=== PATIENT | female | born 1975 | race Caucasian/White ===

== ENCOUNTER 2019-06-10 08:26 | Emergency (ER) | payer MEDICAID ==
[~2019-06-10] VITALS: Ht 165.1 cm; Wt 136.1 kg
[2019-06-10 08:40] VITALS: BP_SYST 149
--- NOTE | 2019-06-10 08:40 | NUR ---
Patient to ER bed 8 to gown for evaluation. Side rails up.
--- NOTE | 2019-06-10 08:41 | NUR ---
Note mally in EDM - 06/10/19 at 1050 by SDEDTD Patient presented to ER with back pain. Patient A&Ox4, skin pink and war, ambulatory to ER, pain 05/05, denies N/V/D. Patient states back pain in
--- NOTE | 2019-06-10 08:41 | NUR ---
Patient presented to ER with back pain. Patient A&Ox4, skin pink and war, ambulatory to ER, pain 05/05, denies N/V/D. Patient states she has left ankle pain and swellin x9 years, not pain radiating to left leg and coccyx. Patient states she had previous left bunionectomy, GERD & lung blood clots. Patient states she takes PRN gabapentin, aleive & Zantac
--- NOTE | 2019-06-10 08:50 | NUR ---
ER Dr. Srinivasan at bedside examining patient.
[2019-06-10] MEDS ORDERED: KETOROLAC TROMETHAMINE 60 MG/2 ML VIAL IM ONE (09:00)
[2019-06-10 09:14] LABS: BASOPHILS % (AUTO) 1.4 % (0.0-2.0); EOSINOPHILS # (AUTO) 0.1 K/uL (0.0-0.4); EOSINOPHILS % (AUTO) 4.8 % (0.0-4.0); HEMATOCRIT 41.5 % (36-48); HEMOGLOBIN 14.1 g/dL (12.0-16.0); LYMPHOCYTES # (AUTO) 1.3 K/uL (1.0-5.5); LYMPHOCYTES % (AUTO) 43.1 % (20.5-51.5); MEAN CORPUSCULAR HEMOGLOBIN 32 pg (27-31); MEAN CORPUSCULAR HGB CONC 34 % (32-36); MEAN CORPUSCULAR VOLUME 95 fL (79.0-98.0); MONOCYTES # (AUTO) 0.3 K/uL (0.0-1.0); MONOCYTES % (AUTO) 8.6 % (1.7-9.3); NEUTROPHILS # (AUTO) 1.3 K/uL (1.8-7.7); NEUTROPHILS % (AUTO) 42.1 % (40.0-70.0); PLATELET COUNT (AUTO) 265 K/uL (130-430); RED BLOOD CELL COUNT(AUTO) 4.37 MIL/uL (4.2-6.2); RED CELL DISTRIBUTION WIDTH 12.7 % (9.0-15.0); WHITE BLOOD COUNT (AUTO) 3.1 K/uL (4.8-10.8)
[2019-06-10 09:33] LABS: PROTHROMBIN TIME 9.9 SECS (9.5-12.5)
[2019-06-10 09:54] LABS: ALANINE AMINOTRANSFERASE 18 U/L (12-78); ANION GAP 5 (5-15); ASPARTATE AMINOTRANSFERASE 16 U/L (10-37); CALCIUM 8.5 mg/dL (8.4-11.0); CHLORIDE 104 mmol/L (98-107); CREATININE 0.87 mg/dL (0.55-1.30); GFR AFRICAN AMERICAN 91 mL/min (>90); GLUCOSE 94 mg/dL (70-99); POTASSIUM 3.9 mmol/L (3.5-5.1); SODIUM SERUM 136 mmol/L (136-145); TOTAL BILIRUBIN 0.5 mg/dL (0.0-1.0); UREA NITROGEN, BLOOD 12 mg/dL (8-21)
[2019-06-10 09:55] LABS: ALBUMIN 3.6 g/dL (3.4-4.8); URIC ACID 3.7 mg/dL (2.4-7.0)
[2019-06-10 10:01] LABS: ERYTHROCYTE SEDIMENTATION RATE 8 MM/HR (0-20)
[2019-06-10 10:43] LABS: C-REACTIVE PROTEIN QUANT < 0.2 mg/dL (0-0.5)
[2019-06-10 10:55] VITALS: BP_SYST 149
--- NOTE | 2019-06-10 10:55 | NUR ---
Patient given written and verbal discharge instructions and verbalizes understanding. ER MD discussed with patient the results and treatment provided. Patient in stable condition. ID arm band removed. Rx of Lamont & Motrin given. Patient educated on pain management and to follow up with PMD. Pain Scale 8/10 tolerable for patient. Opportunity for questions provided and answered.
== END 2019-06-10 10:55 | disposition home or self-care (01) ==
LOC: SED 08:26
DX: M54.5 Low back pain (principal); M25.572 Pain in left ankle and joints of left foot
CPT/HCPCS: 36415; 72131; 73610; 80053; 81025; 84550; 84703; 85025; 85610; 85651; 85730; 86140; 96372; 99284; J1885

== ENCOUNTER 2019-11-01 01:06 | Emergency (ER) | payer MEDICAID ==
[~2019-11-01] VITALS: Ht 165.1 cm; Wt 131.5 kg
[2019-11-01 01:35] VITALS: BP_SYST 130
--- NOTE | 2019-11-01 01:35 | NUR ---
Patient to ER bed 4 to gown for evaluation. Side rails up.
--- NOTE | 2019-11-01 01:36 | NUR ---
Patient complains of bleeding from rectum x 3 weeks. Pt noticed white discharge with bleed. No hx of hemorrhoids. Pt had taken Zofran earlier due to N/V. Pt denies fever. Pt stated she had abdominal pain intermittently. No pain at this time. NO other injuries/complaints per patient or noted.
--- NOTE | 2019-11-01 01:39 | NUR ---
ER Dr. Dasilva at bedside examining patient.
[2019-11-01] MEDS ORDERED: NACL 0.9% 1,000 ML IV ONE (01:45)
[2019-11-01] MEDS ORDERED: DULO60CA41 PO (01:48)
[2019-11-01] MEDS ORDERED: HYDR-4272 PO (01:48)
[2019-11-01] MEDS ORDERED: METH-364 PO (01:49)
[2019-11-01] MEDS ORDERED: OMEP20TA20 PO (01:50)
--- NOTE | 2019-11-01 02:00 | NUR ---
# 22 gauge angiocath placed to Right AC. Use of asceptic technique. Opsite placed over site. Blood return noted. Blood for lab drawn from site. Flushed with 10 cc of normal saline. No evidence of infiltration noted. Patient tolerated well.
[2019-11-01 02:14] LABS: BASOPHILS # (AUTO) 0.1 K/uL (0.0-0.2); BASOPHILS % (AUTO) 0.8 % (0.0-2.0); EOSINOPHILS # (AUTO) 0.1 K/uL (0.0-0.4); EOSINOPHILS % (AUTO) 1.7 % (0.0-4.0); HEMATOCRIT 39.2 % (36-48); HEMOGLOBIN 13.2 g/dL (12.0-16.0); LYMPHOCYTES # (AUTO) 1.6 K/uL (1.0-5.5); LYMPHOCYTES % (AUTO) 23.5 % (20.5-51.5); MEAN CORPUSCULAR HEMOGLOBIN 32 pg (27-31); MEAN CORPUSCULAR HGB CONC 34 % (32-36); MEAN CORPUSCULAR VOLUME 93 fL (79.0-98.0); MONOCYTES # (AUTO) 0.5 K/uL (0.0-1.0); MONOCYTES % (AUTO) 7.7 % (1.7-9.3); NEUTROPHILS # (AUTO) 4.5 K/uL (1.8-7.7); NEUTROPHILS % (AUTO) 66.3 % (40.0-70.0); PLATELET COUNT (AUTO) 241 K/uL (130-430); RED CELL DISTRIBUTION WIDTH 13.6 % (9.0-15.0); WHITE BLOOD COUNT (AUTO) 6.8 K/uL (4.8-10.8)
[2019-11-01 02:31] LABS: CALCIUM 8.6 mg/dL (8.4-11.0); CREATININE 1.04 mg/dL (0.55-1.30); POTASSIUM 3.6 mmol/L (3.5-5.1)
[2019-11-01 02:36] LABS: ALBUMIN 3.6 g/dL (3.4-4.8); TOTAL BILIRUBIN 0.7 mg/dL (0.0-1.0)
--- NOTE | 2019-11-01 03:24 | NUR ---
Rectal exam performed by Dr. Dasilva with JUAN Dunn at bedside during procedure. Patient tolerated well.
--- NOTE | 2019-11-01 04:40 | NUR ---
ER Dr. Dasilva at bedside explaining results to patient.
[2019-11-01 05:06] VITALS: BP_SYST 134
--- NOTE | 2019-11-01 05:06 | NUR ---
Patient given written and verbal discharge instructions and verbalizes understanding. ER MD discussed with patient the results and treatment provided. Patient in stable condition. ID arm band removed. IV catheter removed intact and dressing applied, no active bleeding. No Rx given. Patient educated on pain management and to follow up with PMD. Pain Scale 0. Opportunity for questions provided and answered. Medication side effect fact sheet provided.
== END 2019-11-01 05:06 | disposition home or self-care (01) ==
LOC: SED 01:06
DX: K92.2 Gastrointestinal hemorrhage, unspecified (principal); Z79.899 Other long term (current) drug therapy; Z88.1 Allergy status to other antibiotic agents; Z88.6 Allergy status to analgesic agent
CPT/HCPCS: 36415; 80053; 82272; 85025; 85610; 99283; J7030